=== PATIENT | female | born 1990 | race Caucasian/White ===

== ENCOUNTER → 2020-03-11 18:08 | Outpatient (BNVA) | payer MEDICAID, SELFPAY | PROVIDERS: Visit Provider Surgery | DX: Z11.59 Encounter for screening for other viral diseases (principal) | CPT/HCPCS: 87635 ==

== ENCOUNTER 2020-03-16 06:52 | Day surgery (SDC) | payer MEDICAID, SELFPAY ==
[2020-03-14 08:30] VITALS: BMI 36.1
[2020-03-16 07:04] VITALS: BP 112/60; PULSE 80; RESP 18; TEMP 36.8; O2SAT 98
[2020-03-16 07:13] LABS: OR HCG Qualitative Urine Negative (Negative)
[2020-03-16] MEDS: sodium chloride 0.9% 1,000 ML 30 ML IV (07:17)
--- NOTE | 2020-03-16 07:33 | P.ANESASSM_ITS ---
Pre-Anesthetic Assessment Pre-Anesthetic Assessment: Height/Weight: Height 1.6 m Weight 92.533 kg Temp Pulse Resp BP Pulse Ox 98.2 F 80 18 112/60 98 03/16/20 07:04 03/16/20 07:04 03/16/20 07:04 03/16/20 07:04 03/16/20 07:04 Preop Diagnosis: Chronic acid reflux Proposed Procedure: Operation Date: 03/16/20 08:00 Proposed Procedures p EGD 15367 K21.9(Not Applicable) - Leo Howell MD Was Beta Anais taken within 24 hours: N/A Last intake: Intake Last Liquid Date 03/15/20 Last Liquid Time 17:30 Last Solid Date 03/15/20 Last Solid Time 17:30 Social: Social History: No alcohol and No tobacco Exam: Pre-Anes Outpt Exam: alert, oriented x 3, clear to auscultation bilaterally and regular rate & rhythm Airway: Submandibular: WNL Cervical ROM: WNL MP: 2 History/ROS: No significant history except as noted Pulmonary: Pulmonary: None reported CV/HEM: CV/HEM: HTN : : None reported Hepatic: Hepatic: None reported GI: GI: GERD Metabolic: Metabolic: Morbid obesity Musc/skel: Musc/skel: None reported Neuropsych: Neuropsych: None reported Anesthetic Plan: ASA status: 2 Anesthesia: MAC Meds/Allergies Current Medications: Current Medications Generic Name Dose Route Start Last Admin Trade Name Freq PRN Reason Stop Dose Admin Sodium Chloride 1,000 mls @ 30 ml s/hr 03/16/20 07:00 03/16/20 07:17 Sodium Chloride 0.9% IV 03/17/20 06:59 30 mls/hr .Q24H TIFFANY Administration PFSH Anesthesia PFSH: Family History Other Diabetes Denies family history of Anesthesia complication Bleeding disorder Social History Smoking and tobacco status: never smoked Second hand smoke exposure: No Alcohol intake: never Adopted: No Caregiver/support person: Yes Lives independently: Yes Household members: spouse Housing: House Marital status: service: No Current occupational status: unemployed Current occupational exposures/hazards: No Pets and animals: Yes History of recent travel: No Sexually active: Yes Current gender identity: Female Rosalinda/Latter-Day: Gnosticist Special rosalinda needs: No Agree to transfusion: No Financial difficulty paying for basics: Decline to Answer Data Anesthesia Other Labs: Laboratory Results - last 48 hr 03/16/20 07:12 Urine HCG, Qual Negative Cardiac Studies: No Data to Display
--- NOTE | 2020-03-16 08:43 | W.PM.OPSUD ---
Surgery/Procedure H&P Update DATE OF PROCEDURE: March 16, 2020 DATE H&P PERFORMED: 02/18/20 H&P UPDATE INFORMATION: I have reviewed H&P completed within last 30 days, I have examined patient prior to procedure and No changes to prior documentation PREOP DIAGNOSIS: Chronic acid reflux PRIMARY INDICATION FOR PROCEDURE: The same PLANNED PROCEDURE: Operation Date: 03/16/20 08:00 Proposed Procedures p EGD 54575 K21.9(Not Applicable) - Leo Howell MD
[2020-03-16 09:00] VITALS: BP 102/54; PULSE 93; RESP 16; TEMP 36.1; O2SAT 97
[2020-03-16 09:13] VITALS: BP 110/69; PULSE 91; RESP 18; O2SAT 95
--- NOTE | 2020-03-16 11:08 | ANE.PACU2 ---
Inpatient post-anesthesia follow up: Airway intact: Yes Vital signs: Temperature 97 F Pulse Rate 91 Respiratory Rate 18 Blood Pressure 110/69 Pulse Oximetry 95 Oxygen Delivery Me thod Room Air Oxygen Flow Rate Fraction of Inspir ed Oxygen Hydration adequate: Yes Nausea and vomiting: No Pain level: 2 Mental status: Baseline
[2020-03-17 05:53] LABS: H. Pylori / CLO Test Positive
== END 2020-03-16 09:23 | disposition home or self-care (01) ==
PROVIDERS: Anesthesiology; PCP Registered Nurse; Visit Provider Surgery
PROC: 0DJ08ZZ Inspection of Upper Intestinal Tract, Via Natural or Artificial Opening Endoscopic (ICD-10-PCS; CPT 43235; principal; 2020-03-16 08:00)
DX: K21.00 Gastro-esophageal reflux disease with esophagitis, without bleeding (principal); K29.70 Gastritis, unspecified, without bleeding; I10 Essential (primary) hypertension; E66.01 Morbid (severe) obesity due to excess calories; Z68.36 Body mass index [BMI] 36.0-36.9, adult
CPT/HCPCS: 12345; 43239; 84703; 87077; J2704; J3490; J7030